=== PATIENT | male | born 1950 | race Caucasian/White ===

== ENCOUNTER 2017-01-20 17:19 | Emergency (ER) | payer MEDICARE, OTHER ==
[~2017-01-20] VITALS: Ht 177.8 cm; Wt 91.0 kg
[2017-01-20 17:23] VITALS: BP 143/76; PULSE 58; RESP 16; TEMP 98.5; O2SAT 96
[2017-01-20] MEDS ORDERED: AMOX250C3 PO (17:33)
[2017-01-20] MEDS ORDERED: IBUP800T23 PO (17:33)
--- NOTE | 2017-01-20 18:18 | PD ---
HPI Chief Complaint: Fall Time Seen by Provider: 17:30 Travel History International Travel<30 days: No Contact w/Intl Traveler<30days: No Traveled to known affect area: No History of Present Illness HPI 66-year-old male presents emergency department for evaluation of left hip and buttocks pain status post fall approximately one week ago while at work. Patient reports he slipped and fell landing onto his buttocks. He denies head injury or loss of consciousness. He reports he was able to stand and ambulate after the fall although it was painful in the left pelvic region. He reports the pain has continued since the fall and he has a bruise to the left buttocks and lateral thigh which has been expanding since the fall prompting his visit today. He was concerned that the area of ecchymosis was increasing. He denies abdominal pain, back pain, numbness/weakness/tingling in the extremity. He reports the pain as constant localized to left buttocks, nonradiating, severity 2/10. PFSH Past Medical History Cancer: No Cardiovascular Problems: No Diabetes: No Endocrine: No Genitourinary: No Hepatitis: No Hiatal Hernia: No Immune Disorder: No Musculoskeletal: Yes (SLIGHT LIMP RIGHT LEG FROM PREVIOUS QUAD INJURY ) Neurologic: No Psychiatric: No Respiratory: No Thyroid Disease: No Tetanus Vaccination: < 5 Years Influenza Vaccination: No Past Surgical History Abdominal Surgery: Yes (BILATERAL INGUINAL HERNIA REPAIR 2003 MESH) AICD: No Body Medical Devices: MESH FROM BILATERAL INGUINAL HERNIA REPAIR Cardiac Surgery: No Ear Surgery: No Endocrine Surgery: No Eye Surgery: No Genitourinary Surgery: No Joint Replacement: No Oral Surgery: No Pacemaker: No Thoracic Surgery: No Social History Alcohol Use: Yes (1/day) Tobacco Use: No Substance Use: No Allergies-Medications (Allergen,Severity, Reaction): Coded Allergies: No Known Allergies (Unverified , 01/20/17) Reported Meds & Prescriptions Reported Meds & Active Scripts Active Reported Ibuprofen 800 Mg Tab 800 Mg PO Q8H PRN Amoxicillin 250 Mg Cap 250 Mg PO TID Review of Systems Except as stated in HPI: all other systems reviewed are Neg Physical Exam Narrative GENERAL: Well-nourished, well-developed patient. SKIN: Focused skin assessment warm/dry. Large area of ecchymosis to the left buttocks and left lateral hip and thigh. HEAD: Normocephalic. Atraumatic EYES: No scleral icterus. No injection or drainage. NECK: Supple, trachea midline. No JVD or lymphadenopathy. CARDIOVASCULAR: Regular rate and rhythm without murmurs, gallops, or rubs. RESPIRATORY: Breath sounds equal bilaterally. No accessory muscle use. GASTROINTESTINAL: Abdomen soft, non-tender, nondistended. MUSCULOSKELETAL: No cyanosis, or edema. Patient has full range of motion of the left hip. The pelvis is stable. 2+ distal pulses. BACK: Nontender without obvious deformity. No CVA tenderness. Data Data Last Documented VS Vital Signs Date Time Temp Pulse Resp B/P Pulse Ox O2 Delivery O2 Flow Rate FiO2 01/20/17 17:23 98.5 58 16 143/76 96 Orders Hip, Uni(Ap&Lat) W Ap Pelvis (01/20/17 ) MDM Medical Decision Making Medical Screen Exam Complete: Yes Emergency Medical Condition: Yes Differential Diagnosis Left hip contusion versus fracture versus pelvic fracture Narrative Course 66-year-old male with chief complaint of left hip and buttock pain status post fall approximately one week ago. Patient came into the emergency department today this he was concerned about the expanding bruise on left buttocks and thigh status post fall. On exam patient has a large extensive ecchymotic area to the left buttocks, lateral hip and thigh. He has full painless range of motion of the left hip. The pelvis is stable. X-rays pending X-ray of the left hip and pelvis negative for acute fracture. X-ray findings reviewed with patient. Patient to be treated for contusion. Patient verbalizes understanding and agrees to plan. Instructed to take OTC Tylenol or Motrin as needed for pain and discomfort. Follow up with PCP. Return precautions discussed. Diagnosis Primary Impression: Contusion Qualified Code: S70.02XA - Contusion of left hip, initial encounter Referrals: Primary Care Physician Additional Instructions: Take [id number] Tylenol or Motrin as needed for pain. Follow-up with her primary care doctor. Return to emergency department if he developed new or worsening symptoms. Disposition: 01 DISCHARGE HOME Condition: Stable MatthewAngelika bryant Abdi PRIETO Jan 20, 2017 18:18
--- NOTE | 2017-01-20 18:22 | RADRPT ---
EXAM DATE/TIME: 01/20/2017 17:56 [facility] COMPARISON: No previous studies available for comparison. INDICATIONS : Left hip pain post fall. MEDICAL HISTORY : None. SURGICAL HISTORY : None. ENCOUNTER: Initial ACUITY: 1 week PAIN SCORE: 2/10 LOCATION: Left pelvis FINDINGS: The bony pelvis is intact and has normal morphology. No fracture or subluxation of the left hip. Ther e is moderate osteoarthritis. Mild osteoarthritis seen at the right hip. CONCLUSION: No fracture or subluxation. Mild right and moderate left hip osteoarthritis. Shashank Akhtar MD on January 20, 2017 at 18:20 Board Certified Radiologist. This report was verified electronically.
== END 2017-01-20 18:50 | disposition home or self-care (01) ==
LOC: PHEFT 17:19
DX: S70.02XA Contusion of left hip, initial encounter (principal); Z87.39 Personal history of other diseases of the musculoskeletal system and connective tissue; W01.0XXA Fall on same level from slipping, tripping and stumbling without subsequent striking against object, initial encounter; Y99.0 Civilian activity done for income or pay
CPT/HCPCS: 73502; 99283